=== PATIENT | female | born 1980 | race Two or more races ===

== ENCOUNTER 2023-02-21 09:20 | Inpatient (IN) | payer OTHER ==
[2023-02-21 11:34] VITALS: BMI 26.9
[2023-02-21 12:15] VITALS: RESP 18
[2023-02-21] MEDS ORDERED: ONDANSETRON 4 MG/2 ML VIAL IVPUSH PRN (13:25)
[2023-02-21] MEDS ORDERED: FENTANYL CITRATE/PF 50 MCG/ML VIAL ONE (13:40)
[2023-02-21] MEDS ORDERED: morphine SULFATE/PF 1 MG/2 ML (2cc Syringe - QUVA) ONE (13:40)
[2023-02-21] MEDS ORDERED: ceFAZolin SODIUM 1 GM VIAL ONE (14:08)
[2023-02-21] MEDS ORDERED: ONDANSETRON 4 MG/2 ML VIAL ONE (14:12)
[2023-02-21] MEDS ORDERED: PHENYLEPHRINE HCL 10 MG/1 ML SINGLE DOSE VIAL ONE (14:16)
[2023-02-21] MEDS ORDERED: OXYTOCIN 10 UNITS/ML VIAL ONE ×2 (14:19→14:52)
[2023-02-21] MEDS ORDERED: SENNOSIDES/DOCUSATE COMBO (SENNA PLUS) TABLET (UD) PO PRN (15:24)
[2023-02-21] MEDS ORDERED: METHYLERGONOVINE MALEATE 0.2 MG/1 ML AMP IM PRN (15:24)
[2023-02-21] MEDS ORDERED: ACETAMINOPHEN 325 MG TABLET (FP) PO PRN (15:24)
[2023-02-21] MEDS ORDERED: ELECTROLYTE-148 SOLN 1,000 ML IV SCH (15:30)
[2023-02-21] MEDS ORDERED: OXYTOCIN 20 UNITS in 0.9% NS 20 UNIT/1,000 ML INFUS.BAG IV ONE (16:21)
[2023-02-21] MEDS: OXYTOCIN 20 UNITS in 0.9% NS 20 UNIT/1,000 ML INFUS.BAG IV SCH (16:30)
[2023-02-21] MEDS: IBUPROFEN 800 MG/8 ML IJ IVPB PRN (20:14)
[2023-02-21] MEDS: NIFEdipine E.R. 30 MG TABLET PO SCH (22:26)
[2023-02-22] MEDS: OXYTOCIN 20 UNITS in 0.9% NS 20 UNIT/1,000 ML INFUS.BAG IV SCH ×2 (01:19→22:01)
[2023-02-22] MEDS ORDERED: oxyCODONE HCL 5 MG TABLET PO PRN ×2 (03:24)
[2023-02-22] MEDS: IBUPROFEN 800 MG/8 ML IJ IVPB PRN (05:28)
[2023-02-22] MEDS: FERROUS SO4 325 MG TABLET (FP) PO SCH ×2 (08:48→17:40)
[2023-02-22 08:53] LABS: BASO % 0.3 % (0-2.0); EOS % 1.1 % (0-4.5); HEMATOCRIT 38.4 % (32.4-45.2); HEMOGLOBIN 12.9 GM/dL (10.7-15.3); LYMPH % 10.8 % (8-40); MCH 30.2 pg (25.7-33.7); MCHC 33.6 g/dl (32.0-36.0); MEAN CELL VOLUME 89.9 fl (80-96); MEAN PLT VOLUME 8.8 fl (7.5-11.1); MONO % 5.8 % (3.8-10.2); PLATELET COUNT 186 10^3/uL (134-434); RBC 4.27 M/mm3 (3.60-5.2); RDW 12.8 % (11.6-15.6); WHITE BLOOD COUNT 10.1 K/mm3 (4.0-10.0)
[2023-02-22] MEDS: NIFEdipine E.R. 30 MG TABLET PO SCH ×2 (10:17→22:02)
[2023-02-22] MEDS: PRENATAL VITAMINS W/ FOLIC ACID TABLET (FP) PO SCH (10:17)
[2023-02-22] MEDS ORDERED: BISACODYL 10 MG SUPP.RECT RC PRN (15:24)
[2023-02-22] MEDS: IBUPROFEN 600 MG TABLET (FP) PO PRN (22:02)
[2023-02-23] MEDS: FERROUS SO4 325 MG TABLET (FP) PO SCH ×2 (08:23→18:34)
[2023-02-23] MEDS: PRENATAL VITAMINS W/ FOLIC ACID TABLET (FP) PO SCH (09:52)
[2023-02-23] MEDS: NIFEdipine E.R. 30 MG TABLET PO SCH ×2 (09:52→22:03)
[2023-02-24] MEDS: SIMETHICONE 80 MG TAB.CHEW (FP) PO PRN ×2 (00:47→18:08)
[2023-02-24] MEDS: IBUPROFEN 600 MG TABLET (FP) PO PRN ×3 (00:47→18:08)
[2023-02-24] MEDS: PRENATAL VITAMINS W/ FOLIC ACID TABLET (FP) PO SCH (09:44)
[2023-02-24] MEDS: FERROUS SO4 325 MG TABLET (FP) PO SCH ×2 (09:44→18:08)
[2023-02-24] MEDS: NIFEdipine E.R. 30 MG TABLET PO SCH ×2 (09:45→21:26)
[2023-02-25] MEDS: IBUPROFEN 600 MG TABLET (FP) PO PRN (06:34)
[2023-02-25] MEDS: SIMETHICONE 80 MG TAB.CHEW (FP) PO PRN (06:34)
[2023-02-25] MEDS: FERROUS SO4 325 MG TABLET (FP) PO SCH (08:17)
[2023-02-25 08:44] VITALS: BP 134/86; PULSE 89; TEMP 98.7
[2023-02-25] MEDS: NIFEdipine E.R. 30 MG TABLET PO SCH (10:50)
[2023-02-25] MEDS: PRENATAL VITAMINS W/ FOLIC ACID TABLET (FP) PO SCH (10:50)
== END 2023-02-25 14:50 | disposition home or self-care (01) | DRG 540 ==
LOC: JLDR 09:20 → J3W 16:55
PROVIDERS: ADMIT Obstetrics & Gynecology; ATTEND Obstetrics & Gynecology
PROC: 10D00Z1 Extraction of Products of Conception, Low, Open Approach (ICD-10-PCS; principal; 2023-02-21)
DX: O24.429 Gestational diabetes mellitus in childbirth, unspecified control (principal); O13.4 Gestational [pregnancy-induced] hypertension without significant proteinuria, complicating childbirth; O34.219 Maternal care for unspecified type scar from previous cesarean delivery; Z3A.38 38 weeks gestation of pregnancy; Z37.0 Single live birth
CPT/HCPCS: 36415; 80053; 82962; 85025; 85610; 85730; 86780; 86850; 86900; 86901; 87389; 88307-TC